=== PATIENT | female | born 1935 | race Caucasian/White ===

== ENCOUNTER 2018-07-10 15:01 | Emergency (ER) | payer SELFPAY ==
[~2018-07-10] VITALS: Ht 152.4 cm; Wt 64.9 kg
--- NOTE | 2018-07-10 15:10 | NUR ---
bib ra c/o low bp from home for hypotension, NAD noted, VSS, resp even and unlabored. pt was put on monitor, waiting for md chicas.
[2018-07-10 15:53] LABS: CALCIUM, SERUM 7.7 mg/dL (8.5-10.1); CARBON DIOXIDE 27 mmol/L (21-32); CHLORIDE 94 mmol/L (98-107); CREATININE 0.9 mg/dL (0.6-1.3); GLUCOSE 198 mg/dL (74-106); POTASSIUM 4.3 mmol/L (3.5-5.1); SODIUM SERUM 128 mmol/L (136-145); UREA NITROGEN, BLOOD 20 mg/dL (7-18)
[2018-07-10 15:55] LABS: BASOPHILS % (AUTO) 0.3 % (0.0-2.0); EOSINOPHILS % (AUTO) 0.2 % (0.0-6.0); HEMATOCRIT 34 % (33-45); HEMOGLOBIN 11.2 g/dL (11.5-14.8); LYMPHOCYTES % (AUTO) 6.3 % (20.0-44.0); MEAN CORPUSCULAR HEMOGLOBIN 32 PG (26.0-33.0); MEAN CORPUSCULAR HGB CONC 34 g/dl (31.0-36.0); MEAN CORPUSCULAR VOLUME 95 fL (82-100); MONOCYTES % (AUTO) 4.8 % (2.0-12.0); NEUTROPHILS % (AUTO) 88.4 % (43.0-81.0); PLATELET COUNT (AUTO) 82 /CMM (150-450); RDW COEFFICIENT OF VARIATION 19.1 (11.5-15.0); RED BLOOD CELL COUNT(AUTO) 3.53 MIL/uL (4.0-5.2); WHITE BLOOD COUNT (AUTO) 9.3 K/uL (4.3-11.0)
[2018-07-10 15:57] LABS: INR 1.33 (0.85-1.15)
[2018-07-10 15:59] LABS: ALANINE AMINOTRANSFERASE 51 U/L (12-78); ALBUMIN 2.4 g/dL (3.4-5.0); ALKALINE PHOSPHATASE 365 U/L (46-116); ASPARTATE AMINOTRANSFERASE 150 U/L (15-37); BILIRUBIN,DIRECT 0.3 mg/dL (0.0-0.2); BILIRUBIN,TOTAL 0.9 mg/dL (0.2-1.0); TOTAL PROTEIN, SERUM 6.9 g/dL (6.4-8.2)
[2018-07-10 16:01] LABS: TROPONIN I 0.213 ng/mL (0.00-0.056)
--- NOTE | 2018-07-10 16:29 | NUR ---
Patient does not wish to proceed with medical care recommended by Dr. Hamilton. Patient given information related to possible complications, up to and including , which could occur as a result of leaving the hospital at this time. Patient verbalizes understanding of risks involved due to leaving against medical advice. Patient has signed AMA form.
[2018-07-10 16:30] VITALS: BP 115/75
[2018-07-10 17:30] LABS: LYMPHOCYTES % (MANUAL) 8 % (16-48); MONOCYTES % (MANUAL) 4 % (0-11.0); NEUTROPHILS % (MANUAL) 88 (42-76)
== END 2018-07-10 16:33 | disposition left against medical advice (07) ==
LOC: ER 15:03
DX: J96.00 Acute respiratory failure, unspecified whether with hypoxia or hypercapnia (principal); J81.1 Chronic pulmonary edema; I21.4 Non-ST elevation (NSTEMI) myocardial infarction; J90 Pleural effusion, not elsewhere classified; D64.9 Anemia, unspecified; E87.1 Hypo-osmolality and hyponatremia; E86.0 Dehydration; R79.89 Other specified abnormal findings of blood chemistry; E78.00 Pure hypercholesterolemia, unspecified; Z90.12 Acquired absence of left breast and nipple
CPT/HCPCS: 36415; 71045; 80048; 80076; 83605; 84484; 85025; 85730; 87040 ×2; 93005; 99285; A4606; Z7610